=== PATIENT | female | born 1995 | race Caucasian/White ===

== ENCOUNTER → 2016-05-05 | Outpatient (CLI) | payer BC, OTHER ==
[~2016-05-05] MED LIST: BCPILLS PO; LORA10CA2 PO; PHEN95TA14 PO
--- NOTE | 2016-05-05 13:55 | DIAGNOSTIC IMAGING REPORT ---
RIGHT PELVIS UNI HIP 2-3 V CLINICAL HISTORY: Right hamstring injury. COMPARISON: None FINDINGS: The sacroiliac joints and symphysis pubis are intact. No acute fracture within the pelvis or the hips. No osseous lesion is present. No avulsion fracture is identified. IMPRESSION: No abnormality of the pelvis or hips identified. Electronically signed by: Solo Le M.D. 05/05/2016 1:54 PM Dictated Date/Time: 05/05/2016 1:51 PM
== END | disposition home or self-care (01) ==
LOC: C.RDSM 12:00
PROVIDERS: ATTEND Internal Medicine
DX: S76.301A Unspecified injury of muscle, fascia and tendon of the posterior muscle group at thigh level, right thigh, initial encounter (principal); X58.XXXA Exposure to other specified factors, initial encounter

== ENCOUNTER → 2016-05-08 | Outpatient (CLI) | payer BC, OTHER ==
--- NOTE | 2016-05-08 20:43 | DIAGNOSTIC IMAGING REPORT ---
MRI THE RIGHT HIP NO CONTRAST CLINICAL HISTORY: Right hip pain status post trauma. Possible transient dislocation. COMPARISON STUDY: Conventional radiographic study dated 05/05/2016 FINDINGS: Imaging was performed in sagittal coronal and axial planes. There is no evidence of pathologic adenopathy. There are no areas of marrow edema to indicate occult fracture. There are no areas of marrow edema to indicate a neoplastic process. There is no evidence of avascular necrosis. There is no evidence of pathologic joint effusion. There is fluid surrounding the hamstring tendons with abnormal signal the hamstring insertion. IMPRESSION: 1. Partial tear of the proximal right hamstring insertion. 2. No bony abnormalities of the hips are visualized. Electronically signed by: Erik Borwn M.D. 05/08/2016 8:41 PM Dictated Date/Time: 05/08/2016 8:34 PM
== END | disposition home or self-care (01) ==
LOC: C.MRI 19:24
PROVIDERS: ATTEND Internal Medicine
DX: S76.811A Strain of other specified muscles, fascia and tendons at thigh level, right thigh, initial encounter (principal); X58.XXXA Exposure to other specified factors, initial encounter

== ENCOUNTER → 2017-03-17 | Outpatient (CLI) | payer BC, OTHER | END | disposition home or self-care (01) | LOC: C.RDSM 10:23 | PROVIDERS: ATTEND Physical Medicine & Rehabilitation Sports Medicine | DX: M25.512 Pain in left shoulder (principal) ==